=== PATIENT | male | born 1975 | race Two or more races ===

== ENCOUNTER 2017-01-23 20:53 | Inpatient (IN) | payer MEDICAID, OTHER ==
--- NOTE | 2017-01-23 22:06 | C.PDOC ---
History Of Present Illness Patient presents to the emergency room after heroine, cocaine, and marijuana abuse today. Patient is recently homeless and is requesting detox. Explained to patient that there are no detox beds and patient states he will cut his wrists if he does not get a bed. Patient denies any other complaints. Time Seen by Provider: 01/23/17 21:55 Chief Complaint (Nursing): Substance Abuse History Per: Patient History/Exam Limitations: no limitations Onset/Duration Of Symptoms: Hrs Current Symptoms Are (Timing): Still Present Suicide/Self Injury Attempted (Context): None Modifying Factor(s): Alcohol, Marijuana, Cocaine Severity: Mild Associated Symptoms: Suicidal Thoughts (Says he will cut wrists if he doesn't get a detox bed.), Suicidal Plan Recent travel outside of the [place]: No Past Medical History Reviewed: Historical Data, Nursing Documentation, Vital Signs Vital Signs: Last Vital Signs Temp 97.6 F 01/24/17 00:45 Pulse 78 01/24/17 00:45 Resp 18 01/24/17 00:45 BP 111/66 01/24/17 00:45 Pulse Ox 99 01/24/17 01:31 - Medical History PMH: Denies: Diabetes, Hepatitis, HIV, HTN, Seizures, Sexually Transmitted Disease Family History: States: Unknown Family Hx - Social History Hx Alcohol Use: Yes Hx Substance Use: Yes - Immunization History Hx Tetanus Toxoid Vaccination: No Hx Influenza Vaccination: No Hx Pneumococcal Vaccination: No Review Of Systems Constitutional: Negative for: Fever, Chills Gastrointestinal: Negative for: Nausea, Vomiting, Diarrhea Psych: Positive for: Suicidal ideation (Says will cut wrist if he does not receive a detox bed.), Other (Heroine, Cocaine, and Marijuana abuse.) Physical Exam - Physical Exam Appears: Non-toxic Skin: Warm, Dry Cardiovascular: Rhythm Regular Respiratory: No Rales, No Rhonchi, No Wheezing Gastrointestinal/Abdominal: Soft, No Tenderness, No Guarding, No Rebound Extremity: Normal ROM, No Tenderness Neurological/Psych: Oriented x3, Normal Speech ED Course And Treatment - Laboratory Results Result Diagrams: 01/23/17 22:34 01/23/17 22:34 O2 Sat by Pulse Oximetry: 99 Pulse Ox Interpretation: Normal Disposition Discussed With DrFletcher: Brian Travis Comment: accepted the pt on hi sservice and took over the care at 2:45 AM Doctor Will See Patient In The: Hospital Counseled Patient/Family Regarding: Studies Performed, Diagnosis - Disposition Disposition: HOSPITALIZED Disposition Time: 02:45 Condition: FAIR - POA Present On Arrival: None - Clinical Impression Clinical Impression: Polysubstance abuse, Depression - Scribe Statement The provider has reviewed the documentation as recorded by the Debbieibmel Kaur All medical record entries made by the Debbieibmel were at my direction and personally dictated by me. I have reviewed the chart and agree that the record accurately reflects my personal performance of the history, physical exam, medical decision making, and the department course for this patient. I have also personally directed, reviewed, and agree with the discharge instructions and disposition.
[2017-01-23 22:45] LABS: BASO % 0.6 % (0.0-2.0); EOS % 0.7 % (0.0-4.0); HEMATOCRIT 37.5 % (35.0-51.0); LYMPH # 1.5 K/uL (1.0-4.3); LYMPH % 28.2 % (20.0-40.0); MEAN CELL VOLUME 83.1 fL (80.0-94.0); MEAN CORPUSCULAR HEMOGLOBIN 27.7 pg (27.0-31.0); MEAN CORPUSCULAR HGB CONC 33.3 g/dL (33.0-37.0); MEAN PLATELET VOLUME 8.3 fL (7.2-11.7); MONO # 0.5 K/uL (0.0-0.8); MONO % 9.1 % (0.0-10.0); NRBC % 0.1 % (0.0-2.0); RED CELL DISTRIBUTION WIDTH 14.9 % (11.5-14.5); WHITE BLOOD COUNT 5.3 K/uL (4.8-10.8)
[2017-01-23 22:46] LABS: CHLORIDE 95 mmol/L (98-107)
[2017-01-23 22:47] LABS: POTASSIUM 4.3 mmol/L (3.6-5.2); SODIUM 133 mmol/L (132-148)
[2017-01-23 22:49] LABS: ALB/GLOB RATIO 1.2 (1.0-2.1); ALKALINE PHOSPHATASE 106 U/L (38-126); AST/SGOT 99 U/L (17-59); BILIRUBIN,TOTAL 0.5 mg/dL (0.2-1.3); BLOOD UREA NITROGEN 16 mg/dL (9-20); CARBON DIOXIDE 25 mmol/L (22-30); GFR AFRICAN-AMERICAN > 60; RBC URINE 3 /hpf (0-3); TOTAL PROTEIN 7.1 g/dL (6.3-8.3); URINE BACTERIA RARE (<OCC); URINE BILIRUBIN NEGATIVE (NEGATIVE); URINE BLOOD NEGATIVE (NEGATIVE); URINE CALCIUM OXALATE CRYSTALS FEW /hpf (<OCC); URINE COLOR Amber (YELLOW); URINE GLUCOSE (UA) NORMAL (Normal); URINE KETONE TRACE mg/dL (NEGATIVE); URINE LEUKOCYTE ESTERASE NEG Leu/uL (Negative); URINE PROTEIN 1+ mg/dL (NEGATIVE); WBC URINE 2 /hpf (0-5)
[2017-01-23 22:50] LABS: ALCOHOL SERUM < 10 mg/dl (0-10); ALT/SGPT 37 U/L (21-72); CALCIUM 8.1 mg/dl (8.6-10.4); GLUCOSE,RANDOM 100 mg/dL (75-110)
[2017-01-24 03:08] VITALS: O2SAT 95
[2017-01-24] MEDS ORDERED: Aluminum Hydroxide/Magnesium Hydroxide Susp (30 mL) PO PRN (04:12)
--- NOTE | 2017-01-24 12:12 | PCM.PSYCH ---
Initial Psychiatric Evaluation - Initial Psychiatric Evaluation Type of Admission: Voluntary Legal Status: Capacity Chief Complaint (in patient's own words): I'm okay, I guess. Patient's Reaction to Hospitalization: positive History of Present Illness and Precipitating Events: Pt is a 41 yo M with history of polysubstance abuse and depression admitted for suicidal ideation with plan. Pt is single, has no children, is unemployed and homeless. Pt complains of depressed mood and suicidal ideation with plan to overdose or run into traffic for the past 2 days. Pt states he's had suicidal ideation previously, but no attempts. Pt also admits to auditory hallucinations of voices screaming and telling him not to do drugs. Denies visual hallucinations and manic symptoms. Pt also requesting detox. States he uses 10-20 bags of heroin (intravenously), 3 bags of cocaine (smokes and shoots), 3-4 beers and 3- 4 shots of alcohol daily, as well as cannabis, and benzodiazepines occassionally. States he began using over a year ago. Has been to detox and rehab one time. Has not tried MAT. Pt complains of subjective fever, chills, diaphoresis, yawning, back pain and diarrhea. Depressive sxs are likely substance induced and he likely used the SI to get into the hospital. He denies it now. Contracts for safety and is future- oriented. He is interested in going to [employer]. Psych hx: No previous psych hospitalizations Family Psych Hx: denies PMHx: Hepatitis C, questionable seizure disorder Current Medications: Active Medications Generic Name Dose Route Start Last Admin Trade Name Freq PRN Reason Stop Dose Admin Al Hydrox/Mg Hydrox/Simethicone 30 ml 01/24/17 04:12 Maalox 30 Ml PO Q6H PRN Indigestion / Heartburn Hydroxyzine HCl 50 mg 01/24/17 04:15 Atarax PO QID PRN Anxiety Ibuprofen 400 mg 01/24/17 04:14 Motrin Tab PO Q6H PRN Pain, moderate (4-7) Ondansetron HCl 4 mg 01/24/17 04:11 01/24/17 04:20 Zofran Tab PO 4 mg TID PRN Administration Nausea Trazodone HCl 50 mg 01/24/17 22:00 Desyrel PO HS [facility] Past Psychiatric History - Past Psychiatric History Pertinent Medical Hx (Current Medical&Sleep Prob, Allergies): Allergies Allergy/AdvReac Type Severity Reaction Status Date / Time No Known Allergies Allergy Verified 07/23/16 18:24 Review of Systems - Constitutional Constitutional: Fever, Chills, Sweats - Gastrointestinal Gastrointestinal: Diarrhea - Neurological Neurological: UNREMARKABLE - Psychiatric Psychiatric: Auditory Hallucinations, Suicidal Ideation. absent: Visual Hallucinations, Tactile Hallucinations Mental Status Examination - Personal Presentation Personal Presentation: Looks stated age - Affect Affect: Flat - Motor Activity Motor Activity: Psychomotor Retardation - Reliability in Providing Information Reliability in Providing Information: Good - Speech Speech: Organized - Mood Mood: Depressed - Formal Thought Process Formal Thought Process: No Impairment - Hallucinations/Delusions Hallucinations: Auditory - Cognitive Functions Orientation: Person, Place, Time Sensorium: Drowsy, Lethargic Attention/Concentration: Attentive DSM 5 DX - DSM 5 DSM 5 Diagnosis: Primary: Depressive disorder unspecified r/o MDD Opioid withdrawal Opioid use disorder-severe cocaine use disorder-severe cannabis use disorder-moderate alcohol use disorder-moderate - Recommended/Plan of Treatment Treatment Recommendations and Plan of Treatment: Depression: -Mirtazapine 30mg PO QHS -CBT and supportive therapy -attend groups -Contract for SI Opioids: -Methadone taper -As needed meds -attend groups and activity -MO, CBT -Refer to program -consider MAT Cocaine: -MO for abstinence Alcohol: -MO for abstinence -Monitor sxs 33 min Projected ELOS: 5 days Prognosis: Fair with treatment - Smoking Cessation Smoking Cessation Initiated: No
--- NOTE | 2017-01-25 14:23 | PCM.PYCHPN ---
Psychiatric Progress Note - Psychiatric Progress Note Patient seen today, length of contact: 15 minutes Patient Chief Complaint: I'm not feeling much better. Feeling a lot of withdrawal symptoms Problems Identified/Issues Discussed: Patient seen. Chart reviewed. Case discussed with the staff. Issues related to illness and treatment were discussed with the patient. Patient reported not feeling much better with the treatment as patient is having a lot of withdrawal symptoms including body aches, chills, sweating, abdominal cramps. We will adjust the medications and will add other when necessary medications. Patient agreed. Reported compliant with treatment with no adverse affects. Tolerating treatment very well. At the time of evaluation, patient was awake alert oriented 3, had no delusions, no auditory or visual hallucinations, no suicidal ideations or homicidal ideations. Medical Problems: Hepatitis C Diagnostic Results: Reviewed DSM 5 Symptoms Update: Some improvement with treatment Medication Change: Yes (Active medications) Medical Record Reviewed: Yes Mental Status Examination - Cognitive Function Orientation: Person, Place, Time Memory: Intact Attention: WNL Concentration: WNL Association: WNL Fund of Knowledge: [facility] Decription of patient's judgement and insights: Fair - Mood Mood: Depressed - Affect Affect: Other (Appropriate) - Speech Speech: Appropriate - Formal Thought Process Formal Thought Process: No Impairment Psychotic Thoughts and Behaviors: None - Suicidal Ideation Suicidal Ideation: No - Homicidal Ideation Homicidal Ideation: No Goal/Treatment Plan - Goal/Treatment Plan Need for Continued Stay: Remain at risks for inpatient hospitalization, Discharge may exacerbated symptoms, Severe functional impairment Progress Toward Problem(s) and Goals/Treatment Plan: Patient education Supportive therapy Start gabapentin 300 mg 3 times a day When necessary medications Continue rest of the treatment as before Wants to go to long-term rehabilitation after discharge from the hospital for follow-up care Estimated Date of D/C: 01/30/17 - Smoking Cessation Smoking Cessation Initiated: No
[2017-01-26 07:18] VITALS: RESP 18; TEMP 97
--- NOTE | 2017-01-26 12:44 | PCM.PYCHPN ---
Psychiatric Progress Note - Psychiatric Progress Note Patient seen today, length of contact: 15 minutes Patient Chief Complaint: I'm not feeling much better. Problems Identified/Issues Discussed: Patient seen. Chart reviewed. Case discussed with the staff. Issues related to illness and treatment were discussed with the patient. Patient reported not feeling much better with the treatment, looking for more methadone. We will adjust the medications and will add other when necessary medications. Patient agreed. Reported compliant with treatment with no adverse affects. Tolerating treatment very well. At the time of evaluation, patient was awake alert oriented 3, had no delusions, no auditory or visual hallucinations, no suicidal ideations or homicidal ideations. Medical Problems: Hepatitis C Diagnostic Results: Reviewed DSM 5 Symptoms Update: Improving Medication Change: No Medical Record Reviewed: Yes Mental Status Examination - Cognitive Function Orientation: Person, Place, Time Memory: Intact Attention: WNL Concentration: WNL Association: WNL Fund of Knowledge: [facility] Decription of patient's judgement and insights: Fair - Mood Mood: Depressed - Affect Affect: Other (Appropriate) - Speech Speech: Appropriate - Formal Thought Process Formal Thought Process: No Impairment Psychotic Thoughts and Behaviors: None - Suicidal Ideation Suicidal Ideation: No - Homicidal Ideation Homicidal Ideation: No Goal/Treatment Plan - Goal/Treatment Plan Need for Continued Stay: Remain at risks for inpatient hospitalization, Discharge may exacerbated symptoms, Severe functional impairment Progress Toward Problem(s) and Goals/Treatment Plan: Patient education Supportive therapy Continue treatment as before Wants to go to long-term rehabilitation after discharge from the hospital for follow-up care Estimated Date of D/C: 01/30/17 - Smoking Cessation Smoking Cessation Initiated: No
[2017-01-26 16:05] VITALS: BP 106/66; PULSE 76
--- NOTE | 2017-01-27 11:53 | PCM.PYCHPN ---
Psychiatric Progress Note - Psychiatric Progress Note Patient seen today, length of contact: 15 minutes Patient Chief Complaint: I'm alright. Problems Identified/Issues Discussed: Pt seen, chart reviewed and case discussed with staff. Pt reports that he feels better, but nervous because he is not sure what he will do after discharge. Complains of mild abdominal pain and diarrhea. Denies nausea, vomiting, diaphoresis, shakes, myalgias and any other symptoms. At this time, denies suicidal ideation, homicidal ideation and hallucinations. Psychoeducation and support given. Medication Change: No Medical Record Reviewed: Yes Mental Status Examination - Cognitive Function Orientation: Person, Place, Time Memory: Intact Attention: WNL Concentration: WNL Association: WN Fund of Knowledge: WNL - Mood Mood: Depressed - Affect Affect: Other (Appropriate) - Speech Speech: Appropriate - Formal Thought Process Formal Thought Process: No Impairment - Suicidal Ideation Suicidal Ideation: No - Homicidal Ideation Homicidal Ideation: No Goal/Treatment Plan - Goal/Treatment Plan Need for Continued Stay: Remain at risks for inpatient hospitalization, Discharge may exacerbated symptoms, Severe functional impairment Progress Toward Problem(s) and Goals/Treatment Plan: Depression: -Mirtazapine 30mg PO QHS -CBT and supportive therapy -attend groups -Contract for SI Opioids: -Methadone taper -As needed meds -attend groups and activity -SD, CBT -Refer to program -consider MAT Cocaine: -SD for abstinence Alcohol: -SD for abstinence -Monitor sxs Estimated Date of D/C: 01/30/17
--- NOTE | 2017-01-27 12:57 | PCM.PYCHDC ---
Mental Status Examination - Mental Status Examination Orientation: Person, Place, Situation, Time Memory: Intact Mood: Anxious Affect: Constricted Speech: Soft Attention: Poor Concentration: Poor Association: WNL Fund of Knowledge: Poor Formal Thought Process: No Impairment Suicidal Ideation: No Current Homicidal Ideation?: No Discharge Summary - Discharge Note Reason for Hospitalization: Depression and heroin detox Psychiatric History (includes Medical, Family, Personal Hx): None Consultations:: List each consultation separately and include: 1. Reason for request. 2. Findings. 3. Follow-up Summary of Hospital Course include:: 1. Description of specific treatment plan utilized for patients during their course of treatmen. 2. Summarize the time- course for resolution of acute symptoms and/or regressed behaviors. 3. Describe issues identified and worked on during hospitalization. 4. Describe medication utilized. 5. Describe medical problems identified and treated. 6. Reassessment of suicide risk Summary of Hospital Course: He is seen twice. Case discussed On admission: Pt is a 41 yo M with history of polysubstance abuse and depression admitted for suicidal ideation with plan. Pt is single, has no children, is unemployed and homeless. Pt complains of depressed mood and suicidal ideation with plan to overdose or run into traffic for the past 2 days. Pt states he's had suicidal ideation previously, but no attempts. Pt also admits to auditory hallucinations of voices screaming and telling him not to do drugs. Denies visual hallucinations and manic symptoms. Pt also requesting detox. States he uses 10-20 bags of heroin (intravenously), 3 bags of cocaine (smokes and shoots), 3-4 beers and 3- 4 shots of alcohol daily, as well as cannabis, and benzodiazepines occassionally. States he began using over a year ago. Has been to detox and rehab one time. Has not tried MAT. Pt complains of subjective fever, chills, diaphoresis, yawning, back pain and diarrhea. Depressive sxs are likely substance induced and he likely used the SI to get into the hospital. He denies it now. Contracts for safety and is future- oriented. He is interested in going to [employer]. Psych hx: No previous psych hospitalizations Family Psych Hx: denies PMHx: Hepatitis C, questionable seizure disorder Hospital course: The pt was admitted and started on treatment with psychotherapy, support, psychoeducation and medications. GA and CBT used. Howveer, his motivation was very poor towards the end. The pt attended groups and activities, as well as milieu therapy, but only at times. All the risks and benefits of medications are discussed and the patient understood and agreed. After care discussed with the patient. 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 But then out of the blue he started to demand for d/c and he showed no reason. He kept on saying "I can't be inside during my birthday" as if we pushed him into a rehab (birthday was [birth year]), and he even got loud as the video games storywriter was explaining him risks of leaving early. He is informed on risks of relapse, OD and even . He understood but did not change his mind. He left AMA. - Final Diagnosis (DSM 5) Condition upon Discharge: FAIR DSM 5: Depression unspecified Opioid withdrawal Opioid use d/o - severe Cocaine use d/o - sveer Cannabis use d/o -moderate Disposition: AGAINST MEDICAL ADVICE Follow-up Treatment Plan: Use relapse prevention skills Return to ER or call 911 if suicidal, homicidal or symptoms relapse. Stay away from stress, alcohol and drugs. Re-consider rehab and MAt options
== END 2017-01-27 12:10 | disposition left against medical advice (07) | DRG 743 ==
LOC: C.ER 20:53 → MERGE 22:26 → OBSVTOIN 22:26 → C.9OBSV 22:26 → C.9E 01-24 02:58 → C.5E 01-24 03:27
PROC: HZ2ZZZZ Detoxification Services for Substance Abuse Treatment (ICD-10-PCS; principal; 2017-01-24)
PROC: HZ42ZZZ Group Counseling for Substance Abuse Treatment, Cognitive-Behavioral (ICD-10-PCS; 2017-01-24)
PROC: HZ32ZZZ Individual Counseling for Substance Abuse Treatment, Cognitive-Behavioral (ICD-10-PCS; 2017-01-24)
PROC: HZ59ZZZ Individual Psychotherapy for Substance Abuse Treatment, Supportive (ICD-10-PCS; 2017-01-24)
PROC: HZ36ZZZ Individual Counseling for Substance Abuse Treatment, Psychoeducation (ICD-10-PCS; 2017-01-24)
DX: F11.23 Opioid dependence with withdrawal (principal); R45.851 Suicidal ideations; B19.20 Unspecified viral hepatitis C without hepatic coma; F12.90 Cannabis use, unspecified, uncomplicated; F14.90 Cocaine use, unspecified, uncomplicated; F32.9 Major depressive disorder, single episode, unspecified; F41.9 Anxiety disorder, unspecified; Z72.89 Other problems related to lifestyle; Z59.0 Homelessness